=== PATIENT | male | born 1945 | race Caucasian/White ===

== ENCOUNTER → 2017-04-21 | Outpatient (CLI) | payer OTHER ==
[~2017-04-21] MED LIST: IOPAMIDOL (ISOVUE-300) 100 ML BTL ONE
== END ==
LOC: FIMAGING 15:28
PROVIDERS: ATTEND Urology
DX: N20.0 Calculus of kidney (principal); Z90.6 Acquired absence of other parts of urinary tract
CPT/HCPCS: 74178; Q9967